=== PATIENT | male | born 1950 | race Caucasian/White ===

== ENCOUNTER 2019-10-13 06:49 | Emergency (ER) | payer MEDICARE ==
[2019-10-13] MEDS ORDERED: Albuterol/Ipratropium 3.0-0.5 MG/3 ML Neb Soln NEB ONE (07:16)
--- NOTE | 2019-10-13 07:56 | EDM.PDOC ---
ED HPI GENERAL MEDICAL PROBLEM - General Chief Complaint: Respiratory Problem Stated Complaint: SOB,PANIC ATTACK Time Seen by Provider: 10/13/19 07:10 Source of Information: Reports: Patient, RN Notes Reviewed - History of Present Illness INITIAL COMMENTS - FREE TEXT/NARRATIVE: 69-year-old male comes in with cough, difficulty breathing and anxiety. Dates he has chronic nasal and sinus congestion. He has a lot of drainage down the back of his throat currently. Coughing up clear phlegm. He states he does suffer from chronic anxiety. He has taken alprazolam in the past as well as other medications. "Nothing else works". He has been out of alprazolam for quite a long time. He states he does not have medical insurance and has been unable to afford a clinic appointment. - Related Data Allergies Allergy/AdvReac Type Severity Reaction Status Date / Time No Known Allergies Allergy Verified 10/13/19 07:09 Home Meds: Home Meds ALPRAZolam [Alprazolam] 1 mg PO BID #60 tablet 10/13/19 [Rx] Past Medical History HEENT History: Reports: Impaired Vision Cardiovascular History: Reports: Syncope Other Cardiovascular History: Regular PVCs. Gastrointestinal History: Reports: Chronic Constipation, Other (See Below) Other Gastrointestinal History: Consipation and diarrhea. Musculoskeletal History: Reports: Osteoarthritis - Infectious Disease History Infectious Disease History: Reports: Chicken Pox - Past Surgical History HEENT Surgical History: Reports: Cataract Surgery, Eye Surgery GI Surgical History: Reports: Appendectomy, Colonoscopy, Small Bowel Other GI Surgeries/Procedures: Ruptured appentix Social & Family History - Tobacco Use Smoking Status *Q: Never Smoker Second Hand Smoke Exposure: No - Caffeine Use Caffeine Use: Reports: Coffee - Recreational Drug Use Recreational Drug Use: No ED ROS GENERAL - Review of Systems Review Of Systems: See Below Constitutional: Denies: Fever, Chills HEENT: Reports: Rhinitis, Sinus Problem. Denies: Throat Pain Respiratory: Reports: Shortness of Breath, Cough, Sputum. Denies: Wheezing Cardiovascular: Denies: Chest Pain (Clear) GI/Abdominal: Denies: Abdominal Pain, Vomiting Musculoskeletal: Reports: No Symptoms Skin: Reports: No Symptoms Neurological: Reports: No Symptoms ED EXAM, GENERAL - Physical Exam Exam: See Below General Appearance: Alert, Anxious (Mild) Eye Exam: Bilateral Eye: PERRL Throat/Mouth: Normal Inspection, Normal Oropharynx Head: Atraumatic Neck: Supple, Other Respiratory/Chest: No Respiratory Distress (No JVD), Lungs Clear, Normal Breath Sounds, Wheezing (Slight). No: Rales, Rhonchi Cardiovascular: Regular Rate, Rhythm GI/Abdominal: Soft, Non-Tender Extremities: Normal Inspection, Normal Range of Motion Skin Exam: Warm, Dry, Normal Color Course - Vital Signs Last Recorded V/S: Last Vital Signs Temp 97.3 F 10/13/19 06:57 Pulse 73 10/13/19 06:57 Resp 15 10/13/19 06:57 BP 177/93 H 10/13/19 06:57 Pulse Ox 95 10/13/19 07:17 - Orders/Labs/Meds Orders: Active Orders 24 hr Category Date Time Status RT Aerosol Therapy [RC] ASDIRECTED Care 10/13/19 07:17 Active Meds: Medications Discontinued Medications Generic Name Dose Route Start Last Admin Trade Name Freq PRN Reason Stop Dose Admin Albuterol/Ipratropium 3 ml 10/13/19 07:16 10/13/19 07:35 Duoneb 3.0-0.5 Mg/3 Ml NEB 10/13/19 07:17 3 ml ONETIME ONE Administration - Re-Assessments/Exams Free Text/Narrative Re-Assessment/Exam: 10/13/19 17:14 Chest x-ray, no acute findings Departure - Departure Time of Disposition: 08:16 Disposition: Home, Self-Care 01 Condition: Fair Clinical Impression: Bronchitis, Anxiety - Discharge Information Prescriptions: ALPRAZolam [Alprazolam] 1 mg PO BID #60 tablet Instructions: Living With Anxiety, Acute Bronchitis, Adult Referrals: PCP,None [Primary Care Provider] - Forms: ED Department Discharge Additional Instructions: Alprazolam 1 mg twice a day when necessary anxiety. Vaporizer or steam as needed. If your cough turns productive of yellowish-green phlegm start the prescription for doxycycline provided. Follow-up letter [facility] as needed. Call [phone] as needed for appointment. - My Orders Last 24 Hours: My Active Orders 10/13/19 07:17 RT Aerosol Therapy [RC] ASDIRECTED - Assessment/Plan Last 24 Hours: My Active Orders 10/13/19 07:17 RT Aerosol Therapy [RC] ASDIRECTED
--- NOTE | 2019-10-13 09:18 | CR ---
Chest: Two views of the chest were obtained. Comparison: No prior chest imaging. Nodular opacities are seen within the left chest most likely representing pleural thickening although further workup will be recommended. There is some pleural thickening along the lateral chest wall on both sides. Lungs otherwise are clear. Heart size and mediastinum are normal. Degenerative spurring is seen within the spine. Impression: 1. Opacities within the left chest most likely representing areas of pleural thickening. Noncontrast chest CT recommended to make sure these have a benign appearance on that modality. 2. Other findings which are felt to be incidental. Diagnostic code #9 This report was dictated in [place] Standard Time
== END 2019-10-13 08:45 | disposition home or self-care (01) ==
LOC: JD.ED 06:49
DX: J40 Bronchitis, not specified as acute or chronic (principal); F41.9 Anxiety disorder, unspecified
CPT/HCPCS: 71046; 71046-26; 94640; 99284-25; J7620-GY